=== PATIENT | male | born 1965 | race Caucasian/White ===

== ENCOUNTER 2019-08-06 11:02 | Observation (INO) ==
[2019-08-06] MEDS ORDERED: DILTIAZEM 50 MG/10 ML VIAL IV STA (11:27)
[2019-08-06] MEDS ORDERED: SODIUM CHLORIDE 0.9% 1,000 ML IV STA (11:27)
[2019-08-06 11:45] LABS: Basophils % 0.4 % (0.0-0.8); Eosinophils # 0.3 10*3/uL (0.0-0.87); Eosinophils % 3.1 % (0.00-10.9); Hemoglobin 16.9 GM/DL (14.0-18.0); Immature Granulocytes % 0.6 %; Immature Granulocytes Absolute 0.05 #; Lymphocytes # 0.8 10*3/uL (1.4-4.0); Lymphocytes % 9.7 % (21.2-54.2); Mean Corpuscular HGB Conc 33.1 GM/DL (32-36); Mean Corpuscular Volume 94.1 FL (87-102); Mean Platelet Volume 9.7 FL (9.6-12.0); Monocytes % 17.6 % (1.7-12.7); Neutrophils % 68.6 % (38.7-73.9); Platelet Count 200 T/CUMM (130-400); Red Blood Count 5.42 MC/CUMM (3.8-5.5); Red Cell Distribution Width 12.6 % (9.3-17.3); White Blood Count 8.3 T/CUMM (4-12)
[2019-08-06 12:11] LABS: Albumin 3.4 G/DL (3.4-5.0); Bilirubin,Total 0.9 MG/DL (0.2-1.0); Calcium 8.9 MG/DL (8.5-10.1)
[2019-08-06 12:18] LABS: Band Neutrophils 1 % (0-10); Eosinophils 1 % (0-10); Segmented Neutrophils 86 % (50-85); Total Cells Counted 100
[2019-08-06 12:19] LABS: Platelet Estimate Normal; Polychromasia Slight
[2019-08-06] MEDS ORDERED: ZALEPLON 5 MG CAPSULE PO PRN (13:01)
[2019-08-06] MEDS ORDERED: NICOTINE 21 MG/24 HR PATCH TRANSDERM PRN (13:01)
[2019-08-06] MEDS ORDERED: guaiFENesin/DM ER 600-30 MG TABLET PO PRN (13:01)
[2019-08-06] MEDS ORDERED: ONDANSETRON 4 MG/2 ML VIAL IV PRN (13:01)
[2019-08-06] MEDS ORDERED: diphenhydrAMINE CAP 25 MG CAPSULE PO PRN (13:01)
[2019-08-06 15:44] LABS: Hepatitis B Core IgM Quant 0.09 Index; Hepatitis B Surface Ag Quant < 0.10 Index; Hepatitis B Surface Ag Result Negative (Negative); Hepatitis C Virus Ab Quant 0.05 Index; Hepatitis C Virus Ab Result Negative (Negative)
[2019-08-06 16:56] LABS: HIV Antigen/Antibody Result Nonreactive (Nonreactive)
[2019-08-06] MEDS: DOCUSATE SODIUM 100 MG CAPSULE PO SCH (20:36)
[2019-08-06] MEDS: ASCORBIC ACID 500 MG TABLET PO SCH (20:36)
[2019-08-06] MEDS: ACETAMINOPHEN 325 MG TABLET PO PRN (20:37)
[2019-08-06] MEDS: METOPROLOL TARTRATE 25 MG TABLET PO SCH (20:37)
[2019-08-07] MEDS: ACETAMINOPHEN 325 MG TABLET PO PRN (03:36)
[2019-08-07 03:47] LABS: Basophils % 0.4 % (0.0-0.8); Eosinophils # 0.5 10*3/uL (0.0-0.87); Eosinophils % 10.7 % (0.00-10.9); Hematocrit 45.9 VOL% (42.0-52.0); Hemoglobin 15.2 GM/DL (14.0-18.0); Immature Granulocytes % 0.6 %; Immature Granulocytes Absolute 0.03 #; Lymphocytes # 0.9 10*3/uL (1.4-4.0); Lymphocytes % 18.1 % (21.2-54.2); Mean Corpuscular HGB Conc 33.1 GM/DL (32-36); Mean Corpuscular Volume 94.4 FL (87-102); Mean Platelet Volume 9.7 FL (9.6-12.0); Monocytes % 22.5 % (1.7-12.7); Neutrophils % 47.7 % (38.7-73.9); Platelet Count 176 T/CUMM (130-400); Red Blood Count 4.86 MC/CUMM (3.8-5.5); Red Cell Distribution Width 12.9 % (9.3-17.3); White Blood Count 5.1 T/CUMM (4-12)
[2019-08-07 04:22] LABS: Eosinophils 6 % (0-10); Lymphocytes 7 % (20-55); Platelet Estimate Normal; Segmented Neutrophils 63 % (50-85); Total Cells Counted 100
[2019-08-07 04:25] LABS: Albumin 2.9 G/DL (3.4-5.0); Bilirubin,Total 0.8 MG/DL (0.2-1.0); Calcium 8.3 MG/DL (8.5-10.1); Osmolality,Calculated 278.5 MOS/KG (273-304); Risk Ratio 3.67; Total Protein 6.2 G/DL (6.4-8.3)
[2019-08-07 05:16] LABS: Apearance,Urine CLEAR (Clear); Bacteria,Urine Occasional /HPF (Few); Bilirubin,Urine Negative (Negative); Blood, Urine Negative (Negative); Glucose,Urine (UA) Negative (Negative); Ketones,Urine Negative (Negative); Mucus,Urine Occasional /LPF (Occasional); Nitrite,Urine Negative (Negative); Protein,Urine Negative; RBC,Urine 1 /HPF (0-4); Squamous Epithelial Cell,Urine Occasional /HPF (0-10); Urine Color Yellow (Yellow); Urine Specific Gravity 1.019 (1.001-1.035); WBC,Urine <1 /HPF (0-6)
[2019-08-07 05:21] LABS: Barbiturates Screen,Urine Negative (Negative); Benzodiazepines Screen,Urine Negative (Negative); Cannabinoid Screen,Urine Negative (Negative); Opiate Screen,Urine Negative (Negative); Phencyclidine Screen,Urine Negative (Negative)
[2019-08-07 08:46] VITALS: BP 116/77
[2019-08-07] MEDS: ASCORBIC ACID 500 MG TABLET PO SCH (08:57)
[2019-08-07] MEDS: METOPROLOL TARTRATE 25 MG TABLET PO SCH (08:58)
[2019-08-07] MEDS: DOCUSATE SODIUM 100 MG CAPSULE PO SCH (08:58)
[2019-08-07] MEDS ORDERED: PANTOPRAZOLE 40 MG TABLET PO SCH (09:00)
== END 2019-08-07 14:24 ==
LOC: N.ED 11:02 → N.EDINP 11:02 → N.2W 16:13
PROVIDERS: ADMIT Internal Medicine; ATTEND Internal Medicine